=== PATIENT | female | born 1995 | race Caucasian/White ===

== ENCOUNTER 2017-03-16 19:20 | Emergency (ER) | payer BC | END 2017-03-16 20:26 | disposition home or self-care (01) | LOC: D.ER 19:20 | DX: S90.122A Contusion of left lesser toe(s) without damage to nail, initial encounter (principal); X58.XXXA Exposure to other specified factors, initial encounter; Y93.89 Activity, other specified; Y92.89 Other specified places as the place of occurrence of the external cause; F98.8 Other specified behavioral and emotional disorders with onset usually occurring in childhood and adolescence ==